=== PATIENT | female | born 1950 | race Asian ===

== ENCOUNTER 2018-03-13 07:07 | Inpatient (IN) | payer MEDICARE ==
[2018-03-12 10:00] LABS: BASOPHILS # (AUTO) 0.02 x10^3/uL (0-0.1); BASOPHILS % (AUTO) 1 % (0-1); EOSINOPHILS # (AUTO) 0.04 x10^3/uL (0-0.4); EOSINOPHILS % (AUTO) 1 % (1-7); LYMPHOCYTES # (AUTO) 1.39 x10^3/uL (1-3.4); LYMPHOCYTES % (AUTO) 39 % (22-44); MD NO; MEAN CORPUSCULAR HEMOGLOBIN 33.6 pg (27.0-34.8); MEAN CORPUSCULAR HGB CONC 34.4 g/dL (32.4-35.8); MEAN CORPUSCULAR VOLUME 97.8 fL (80-100); MEAN PLATELET VOLUME 7.7 fL (7.4-10.4); MONOCYTES # (AUTO) 0.31 x10^3/uL (0.2-0.8); MONOCYTES % (AUTO) 9 % (2-9); NEUTROPHILS # (AUTO) 1.85 x10^3/uL (1.8-6.8); NEUTROPHILS % (AUTO) 51 % (42-75); PLATELET COUNT 248 x10^3/uL (130-400); RED BLOOD COUNT 3.88 x10^6/uL (3.82-5.3); RED CELL DISTRIBUTION WIDTH 12.6 % (9.6-15.2)
[2018-03-12 10:01] LABS: MICROSCOPIC NOT IND
[2018-03-12 10:03] LABS: CULTURE INDICATED? NO
[2018-03-12 10:04] LABS: INTERNATIONAL NORMALIZED RATIO 0.88 (0.93-1.1); PROTHROMBIN TIME 9.4 Seconds (9.6-11.5)
[2018-03-12 10:06] LABS: ALANINE AMINOTRANSFERASE 26 U/L (12-78); ALBUMIN 3.5 g/dL (3.4-5.0); ANION GAP 5 mmol/L (5-15); CALCIUM 9.4 mg/dL (8.5-10.1); CHLORIDE 105 mmol/L (98-107); CREATININE 0.74 mg/dL (0.55-1.02)
[2018-03-12 10:08] LABS: ALKALINE PHOSPHATASE 119 U/L (45-117); BILIRUBIN,TOTAL 0.5 mg/dL (0.2-1.0)
[~2018-03-13] VITALS: Ht 160 cm; Wt 59.6 kg
[~2018-03-13 07:07] MED LIST: ALPR-475 PO; AMLO-150 PO; BACITRACIN 50,000 UNIT ONE; BUPIVACAINE/PF-EPI 0.5% 1:200K ONE; CHOL2000 PO; FOLI1TAB66 PO; MAGN100T6 PO; METF500T17 PO; OMEG1CAP39 PO; PANT40TA3 PO; POTA99TA8 PO; THROMBIN 5,000 UNIT VIAL TP ONE; VANCOMYCIN 1,000 MG ONE
[2018-03-13] MEDS ORDERED: MIDAZOLAM 1 MG/ML, 2ML ONE (07:28)
[2018-03-13] MEDS ORDERED: CEFAZOLIN 1,000 MG ONE ×2 (07:29)
[2018-03-13] MEDS ORDERED: FENTANYL PF 250 MCG/5ML ONE (07:29)
[2018-03-13] MEDS ORDERED: SUCCINYLCHOLINE 20 MG/ML, 10ML ONE (07:29)
[2018-03-13] MEDS ORDERED: LIDOCAINE-MPF 2% ,5ML ONE (07:29)
[2018-03-13] MEDS ORDERED: DEXAMETHASONE 4 MG/ML, 1ML ONE ×2 (07:29)
[2018-03-13] MEDS ORDERED: DIAZEPAM 5 MG/ML, 2ML IVPush PRN (08:00)
[2018-03-13] MEDS ORDERED: METOPROLOL 1 MG/ML, 5ML IV PRN (08:00)
[2018-03-13] MEDS ORDERED: FENTANYL PF 100 MCG/2ML IV PRN (08:00)
[2018-03-13] MEDS ORDERED: METOCLOPRAMIDE 5 MG/ML, 2ML IV PRN (08:00)
[2018-03-13] MEDS ORDERED: OXYcodone 5 MG/5 ML ORAL.SOL UDC PO PRN (08:00)
[2018-03-13] MEDS ORDERED: LABETALOL 5MG/ML, 20ML IV PRN ×2 (08:00→13:00)
[2018-03-13] MEDS ORDERED: HYDROmorphone 2 MG/ML, 1ML IVPush PRN (08:00)
[2018-03-13] MEDS ORDERED: MEPERIDINE/PF 25MG/0.5ML IVPush PRN (08:00)
[2018-03-13] MEDS ORDERED: hydrALAzine 20 MG/ML, 1ML IV PRN (08:00)
[2018-03-13] MEDS ORDERED: EPHEDRINE 50 MG/ML, 1ML IVPush PRN (08:00)
[2018-03-13 08:09] VITALS: BP 127/72
[2018-03-13] MEDS ORDERED: GABAPENTIN 300 MG CAPSULE PO ONE (08:30)
[2018-03-13] MEDS ORDERED: ACETAMINOPHEN 500 MG TABLET PO ONE (08:30)
[2018-03-13] MEDS ORDERED: ONDANSETRON ODT 8 MG PO ONE (08:30)
[2018-03-13] MEDS ORDERED: PHENYLEPHRINE 10 MG/ML ONE (09:13)
[2018-03-13] MEDS ORDERED: ROCURONIUM 10 MG/ML,10ML ONE (09:13)
[2018-03-13] MEDS ORDERED: HYDROmorphone 2 MG/ML, 1ML ONE (11:01)
[2018-03-13] MEDS ORDERED: OXYcodone 5 MG/5 ML ORAL.SOL UDC ONE (11:01)
[2018-03-13 12:25] VITALS: BP 101/67
[2018-03-13] MEDS ORDERED: ONDANSETRON 2MG/ML, 2ML IV PRN (13:00)
[2018-03-13] MEDS ORDERED: OXYcodone/APAP 5/325MG TABLET PO PRN (13:00)
[2018-03-13] MEDS ORDERED: DIPHENHYDRAMINE 50 MG CAPSULE PO PRN (13:00)
[2018-03-13] MEDS ORDERED: MAGNESIUM HYDROXIDE 8%, 30ML UDC PO PRN (13:00)
[2018-03-13] MEDS ORDERED: DIPHENHYDRAMINE 50 MG/ML, 1ML IM PRN (13:00)
[2018-03-13] MEDS ORDERED: morphine SULFATE 10 MG/ML, 1ML IV PRN (13:00)
[2018-03-13] MEDS ORDERED: DIPHENHYDRAMINE 50 MG/ML, 1ML IVPush PRN (13:00)
[2018-03-13] MEDS ORDERED: METHOCARBAMOL 750 MG TABLET PO PRN (13:00)
[2018-03-13] MEDS ORDERED: BISACODYL 10 MG SUPP PR PRN (13:00)
[2018-03-13] MEDS ORDERED: PROMETHAZINE 25 MG/ML, 1ML IM PRN (13:00)
[2018-03-13 14:10] VITALS: BP 95/62
[2018-03-13] MEDS: NS + 20MEQ KCL 1,000 ML IV SCH ×2 (14:59→23:00)
[2018-03-13] MEDS: CLINDAMYCIN PMX 600MG/50ML 50 ML IVPB SCH ×2 (14:59→22:10)
[2018-03-13] MEDS: INSULIN REGULAR, HUMAN 100 UNIT/ML 3ML VIAL LOW DOSE SS SQ-INSULIN SCH ×2 (16:00→21:00)
[2018-03-13] MEDS: metFORMIN 500 MG TABLET PO SCH (16:41)
[2018-03-13] MEDS: INSULIN REGULAR 100 UNITS/ML, 3ML VIAL SQ-INSULIN SCH ×2 (16:56→21:00)
[2018-03-13] MEDS ORDERED: CLINDAMYCIN PMX 600MG/50ML 50 ML IVPB SCH (17:00)
[2018-03-13 17:10] VITALS: BP 111/57
[2018-03-13 19:11] VITALS: BP 114/73
[2018-03-13 23:52] VITALS: BP 109/66
[2018-03-14] MEDS: HYDROcodone/APAP 5/325 TABLET PO PRN ×2 (00:58→09:18)
[2018-03-14 04:19] VITALS: BP 112/65
[2018-03-14 05:53] LABS: ANION GAP 8 mmol/L (5-15); CALCIUM 8.7 mg/dL (8.5-10.1); CHLORIDE 109 mmol/L (98-107)
[2018-03-14 05:54] LABS: CREATININE 0.85 mg/dL (0.55-1.02)
[2018-03-14 05:55] LABS: BASOPHILS # (AUTO) 0.01 x10^3/uL (0-0.1); BASOPHILS % (AUTO) 0 % (0-1); EOSINOPHILS % (AUTO) 0 % (1-7); LYMPHOCYTES # (AUTO) 1.27 x10^3/uL (1-3.4); LYMPHOCYTES % (AUTO) 15 % (22-44); MD NO; MEAN CORPUSCULAR HEMOGLOBIN 34.2 pg (27.0-34.8); MEAN CORPUSCULAR HGB CONC 34.6 g/dL (32.4-35.8); MEAN PLATELET VOLUME 8.1 fL (7.4-10.4); MONOCYTES # (AUTO) 0.44 x10^3/uL (0.2-0.8); MONOCYTES % (AUTO) 5 % (2-9); NEUTROPHILS # (AUTO) 6.59 x10^3/uL (1.8-6.8); NEUTROPHILS % (AUTO) 79 % (42-75); PLATELET COUNT 225 x10^3/uL (130-400); RED BLOOD COUNT 3.41 x10^6/uL (3.82-5.3); RED CELL DISTRIBUTION WIDTH 12.4 % (9.6-15.2)
[2018-03-14] MEDS ORDERED: PANTOPROZOLE 40MG TABLET PO SCH (06:00)
[2018-03-14] MEDS ORDERED: ENOXAPARIN 40 MG/0.4 ML SQ SCH (06:00)
[2018-03-14 06:49] VITALS: BP_SYST 101; BP_SYST 114; BP_DIAS 60; BP_DIAS 72
[2018-03-14] MEDS: INSULIN REGULAR, HUMAN 100 UNIT/ML 3ML VIAL LOW DOSE SS SQ-INSULIN SCH (07:00)
[2018-03-14] MEDS: INSULIN REGULAR 100 UNITS/ML, 3ML VIAL SQ-INSULIN SCH (07:00)
[2018-03-14] MEDS: metFORMIN 500 MG TABLET PO SCH (07:27)
[2018-03-14] MEDS ORDERED: AMLODIPINE 5 MG TABLET PO SCH (09:00)
[2018-03-14] MEDS ORDERED: SENNA/DOCUSATE TABLET PO SCH (09:00)
[2018-03-14] MEDS: NS + 20MEQ KCL 1,000 ML IV SCH (09:00)
[2018-03-14] MEDS ORDERED: HYDR-3240 PO (10:08)
[2018-03-14] MEDS ORDERED: METH750T2 PO (10:08)
== END 2018-03-14 10:45 | disposition home or self-care (01) | DRG 520 ==
LOC: OUT 07:07 → 4NOR 12:13 → OUT 12:24 → DCLOUNGE 03-14 10:30
PROVIDERS: ADMIT Neurological Surgery; ATTEND Neurological Surgery
PROC: 01NR0ZZ Release Sacral Nerve, Open Approach (ICD-10-PCS; 2018-03-13)
PROC: 0SB20ZZ Excision of Lumbar Vertebral Disc, Open Approach (ICD-10-PCS; 2018-03-13)
PROC: BR191ZZ Fluoroscopy of Lumbar Spine using Low Osmolar Contrast (ICD-10-PCS; 2018-03-13)
PROC: 01NB0ZZ Release Lumbar Nerve, Open Approach (ICD-10-PCS; principal; 2018-03-13 09:00)
DX: M48.062 Spinal stenosis, lumbar region with neurogenic claudication (principal); M51.16 Intervertebral disc disorders with radiculopathy, lumbar region; K21.9 Gastro-esophageal reflux disease without esophagitis; E11.9 Type 2 diabetes mellitus without complications; I10 Essential (primary) hypertension; Z88.0 Allergy status to penicillin; Z79.899 Other long term (current) drug therapy
CPT/HCPCS: 36415; 71046; 72100; 72110; 80048; 80053; 81003; 82962; 85025; 85610; 85730; 93005; C1729; G0378; J0690; J1100; J1170; J1650; J1815; J2250; J3010; J3370; J3480; J3490; Q0162; J0330; J2370